=== PATIENT | male | born 1955 | race Two or more races ===

== ENCOUNTER 2018-02-11 12:55 | Emergency (ER) | payer MEDICARE ==
[~2018-02-11] VITALS: Ht 182.9 cm; Wt 104.3 kg
[2018-02-11 13:11] VITALS: BP 169/103
[2018-02-11] MEDS ORDERED: AMLO10TA2 PO (13:13)
[2018-02-11] MEDS ORDERED: FURO-80 PO (13:13)
[2018-02-11] MEDS ORDERED: LISI-410 PO (13:13)
[2018-02-11] MEDS ORDERED: CARV25TA PO (13:13)
--- NOTE | 2018-02-11 13:13 | NUR ---
ARRIVAL PATIENT ARRIVED TO ED5 AMBULATORY, C/O OF HIGH BLOOD PRESSURE AND HEADACHE TODAY, HAS HAD A FEW EPISODES OF VOMITING BUT WAS ABLE TO KEEP BLOOD PRESSURE MEDICATIONS DOWN. BROUGHT TO PATIENT TO THE ED FOR FURTHER EVAL.
[2018-02-11] MEDS ORDERED: STADOL IM STA (13:21)
[2018-02-11] MEDS ORDERED: PHENERGAN IM STA (13:21)
--- NOTE | 2018-02-11 13:30 | ER.PDOC ---
General Chief Complaint: General Complaint Stated Complaint: HIGH BP,HEADACHE Time seen by MD: 13:28 Source: patient Exam Limitations: no limitations History of Present Illness Initial Comments Headache and high blood pressure for past few days. Severity/Quality: moderate Prior Headaches/Recent Trauma: chronic headaches, occasional headaches Associated Symptoms: nausea/vomiting Prior symptoms/Treatment: Similar symptoms previous Allergies: Coded Allergies: No Known Allergies (Unverified , 02/11/18) Home Meds Reported Medications Amlodipine Besylate (AMLODIPINE BESYLATE) 10 Mg Tablet, 1 TAB PO DAILY, #90 TAB 3 Refills 02/11/18 Lisinopril (LISINOPRIL) 20 Mg Tablet, 1 TAB PO BID, #90 TAB 3 Refills 02/11/18 Furosemide (LASIX) 40 Mg Tablet, 1 TAB PO DAILY, #90 TAB 3 Refills 02/11/18 Carvedilol 25MG (COREG 25MG) 25 Mg Tablet, 1 TAB PO BID, #180 TAB 3 Refills 02/11/18 Past Medical History Medical History: congestive heart failure, hypertension Surgical History: cholecystectomy, colon Social History Smoking: non-smoker Alcohol Use: none Drug Use: marijuana Review of Systems Constitutional: no symptoms reported Respiratory: no symptoms reported Cardiovascular: no symptoms reported Gastrointestinal: no symptoms reported Genitourinary: no symptoms reported Musculoskeletal: no symptoms reported All Other Systems: Reviewed and Negative Physical Exam General Appearance: No Apparent Distress, WD/WN Head/Eyes: eyes nml inspection, no facial swelling, no nystagmus, PERRL ENT: nml ENT inspection, pharynx nml Neck: nml inspection, Supple Cardiovascular: Normal Peripheral Pulses, Regular Rate, Rhythm, No Edema, No Gallop, No JVD, No Murmur Respiratory: chest non-tender, lungs clear, normal breath sounds, no respiratory distress, no accessory muscle use Gastrointestinal: Normal Bowel Sounds, No Organomegaly, No Pulsatile Mass, Non Tender, Soft Back: Normal Inspection, No CVA Tenderness, No Vertebral Tenderness Extremities: Normal Range of Motion, Non-Tender, Normal Inspection, No Pedal Edema, No Calf Tenderness, Normal Capillary Refill Psychiatric: Alert, Oriented x 3 Cranial Nerves: Normal Hearing, Normal Speech, PERRL Skin: Warm/Dry, Normal Color Lymphatic: No Adenopathy Results/Orders Results/Orders Laboratory Tests Test 02/11/18 13:40 Sodium Level 140 mmol/L (132-145) Potassium Level 3.4 mmol/L (3.6-5.2) Chloride Level 102.0 mmol/L (96-109) Carbon Dioxide Level 27.6 mmol/L (20.0-32) Glucose Level 141 mg/dL (70-110) Blood Urea Nitrogen 14 mg/dL (7-18) Creatinine 0.81 mg/dL (0.59-1.40) Calcium Level 9.3 mg/dL (8.4-10.5) Anion Gap 13.8 Estimated GFR () 117.2 (>/=60) BUN/Creatinine Ratio 17.0 Administered Medications Medications (Trade) Dose Ordered Sig/Cristi Route PRN Reason Start Time Stop Time Status Last Admin Dose Admin Butorphanol Tartrate (Stadol) 2 mg STAT STAT IM 02/11/18 13:21 02/11/18 13:23 DC 02/11/18 13:52 Promethazine HCl (Phenergan) 25 mg STAT STAT IM 02/11/18 13:21 02/11/18 13:23 DC 02/11/18 13:52 Progress Progress Nothing acute intracranially and patient is feeling better. Departure Time of Disposition: 14:08 Disposition: 01 HOME, SELF-CARE Impression: Primary Impression: Migraine Qualified Codes: G43.911 - Migraine, unspecified, intractable, with status migrainosus Additional Impression: Uncontrolled hypertension Condition: Improved Referrals: PCP,UNKNOWN (PCP) PRIMARY CARE PROVIDER Additional Instructions: Continue home medications F/U with your PCP in 2-3 days Duration or Time Spent with Pa: 60 mins GURINDER LINTON MD Feb 11, 2018 13:30
[2018-02-11] MEDS ORDERED: STADOL ONE (13:46)
[2018-02-11] MEDS ORDERED: PHENERGAN ONE (13:46)
[2018-02-11 13:56] LABS: CARBON DIOXIDE 27.6 mmol/L (20.0-32)
[2018-02-11 13:57] LABS: CALCIUM 9.3 mg/dL (8.4-10.5)
--- NOTE | 2018-02-11 14:03 | DIREP ---
PROCEDURE:CT HEAD OR BRAIN W/O CONTRAST COMPARISON:None. INDICATIONS:Headache TECHNIQUE:CT images were created without intravenous contrast. FINDINGS: VENTRICLES:The ventricles are normal in size and configuration. CEREBRUM:Normal cerebral morphology with appropriate jang white matter differentiation. CEREBELLUM:Negative. BRAINSTEM:Negative. BASAL CISTERNS:Negative. HEMORRHAGE:No MASS LESION:No ACUTE INFARCT:No SKULL:Normal. SINUSES:1.4 cm mucous retention cyst or polyp is seen in the left maxillary sinus. OTHER:None CONCLUSION:Essentially normal study. Incidentally noted is a 1.4 cm mucous retention cyst or polyp in the left maxillary sinus. Dictated by: Girish Sol M.D. on 02/11/2018 at 02:00 PM
[2018-02-11 14:08] VITALS: BP 152/90
[2018-02-11 14:09] VITALS: BP 152/90
== END 2018-02-11 14:25 | disposition home or self-care (01) ==
LOC: ER 12:55
DX: G43.909 Migraine, unspecified, not intractable, without status migrainosus (principal); I11.0 Hypertensive heart disease with heart failure; I50.9 Heart failure, unspecified; F12.10 Cannabis abuse, uncomplicated; Z90.49 Acquired absence of other specified parts of digestive tract; Z79.899 Other long term (current) drug therapy
CPT/HCPCS: 36415; 70450; 80048; 96372 ×2; 99285; J2550; J0585

== ENCOUNTER 2020-12-13 13:11 | Emergency (ER) | payer MEDICARE ==
[~2020-12-13] VITALS: Ht 182.9 cm; Wt 104.3 kg
[~2020-12-13 13:11] MED LIST: AMLO-170 PO; CARV25TA PO; FURO-80 PO; LISI20TA21 PO
[2020-12-13 14:02] VITALS: BP 182/99
[2020-12-13] MEDS ORDERED: STADOL IM STA (14:05)
[2020-12-13] MEDS ORDERED: ZOFRAN ODT SL STA (14:05)
--- NOTE | 2020-12-13 14:05 | NUR ---
ARRIVAL PATIENT ARRIVED TO ED6 AMBULATORY, C/O HEADACHE SINCE APPROX 0300 THIS MORNING, PATIENT DID TAKE TYLENOL WITH NO RELIEF, DOES HAVE HISTORY OF MIGRAINES, BROUGHT TO THE ED FOR EVAL, DOCTOR WOLF TO THE ROOM TO SEE PATIENT.
[2020-12-13] MEDS ORDERED: ZOFRAN ODT ONE (14:07)
[2020-12-13] MEDS ORDERED: STADOL ONE (14:07)
[2020-12-13] MEDS ORDERED: PHENERGAN IM STA (14:21)
[2020-12-13] MEDS ORDERED: PHENERGAN ONE (14:23)
--- NOTE | 2020-12-23 10:31 | ER.PDOC ---
General Chief Complaint: Headache Stated Complaint: MIGRAINE Time seen by MD: 10:22 Source: patient Exam Limitations: no limitations History of Present Illness Timing/Duration: 4-6 hours Severity/Quality: moderate Prior Headaches/Recent Trauma: chronic headaches, occasional headaches Associated Symptoms: nausea/vomiting, sensitivity to light Modifying Factors: improves with medication, improves with rest Prior symptoms/Treatment: Similar symptoms previous Allergies: Coded Allergies: No Known Allergies (Unverified , 02/11/18) Home Meds Reported Medications Amlodipine Besylate (AMLODIPINE BESYLATE) 10 Mg Tablet, 1 TAB PO DAILY, #90 TAB 3 Refills 02/11/18 Lisinopril (LISINOPRIL) 20 Mg Tablet, 1 TAB PO BID, #90 TAB 3 Refills 02/11/18 Furosemide (LASIX) 40 Mg Tablet, 1 TAB PO DAILY, #90 TAB 3 Refills 02/11/18 Carvedilol 25MG (COREG 25MG) 25 Mg Tablet, 1 TAB PO BID, #180 TAB 3 Refills 02/11/18 Past Medical History Medical History: congestive heart failure, hypertension Surgical History: cholecystectomy, colon Social History Alcohol Use: none Drug Use: none Reviewed Nursing Reviewed: Vital Signs, Abn. Noted Review of Systems All Other Systems: Reviewed and Negative Physical Exam General Appearance: No Apparent Distress, WD/WN Head/Eyes: eyes nml inspection, no facial swelling, no nystagmus, PERRL ENT: nml ENT inspection, pharynx nml Neck: nml inspection, Supple Cardiovascular: Normal Peripheral Pulses, Regular Rate, Rhythm, No Edema, No Gallop, No JVD, No Murmur Respiratory: chest non-tender, lungs clear, normal breath sounds, no respiratory distress, no accessory muscle use Gastrointestinal: Normal Bowel Sounds, No Organomegaly, No Pulsatile Mass, Non Tender, Soft Back: Normal Inspection, No CVA Tenderness, No Vertebral Tenderness Extremities: Normal Range of Motion, Non-Tender, Normal Inspection, No Pedal Edema, No Calf Tenderness, Normal Capillary Refill Psychiatric: Alert, Oriented x 3 Cranial Nerves: Normal Hearing, Normal Speech, PERRL Coordination/Gait: Normal Finger to Nose, Normal Gait Motor/Sensory: No Motor Deficit, No Sensory Deficit, No Pronator Drift, Negative Babinski's Sign Skin: Warm/Dry, Normal Color Lymphatic: No Adenopathy Results/Orders Results/Orders Orders - JIMBO WOLF MD Butorphanol Tartrate (Stadol) (12/13/20 14:05) Ondansetron (Zofran Odt) (12/13/20 14:05) Ondansetron (Zofran Odt) (12/13/20 14:07) Butorphanol Tartrate (Stadol) (12/13/20 14:07) Promethazine Hcl (Phenergan) (12/13/20 14:21) Promethazine Hcl (Phenergan) (12/13/20 14:23) Vital Signs Date Time Temp Pulse Resp B/P (MAP) Pulse Ox O2 Delivery O2 Flow Rate FiO2 12/13/20 14:02 97.9 83 18 12/13/20 14:02 97.9 83 18 97 12/13/20 14:02 97.9 83 18 182/99 (126) 97 Room Air ER DEPART Departure Time of Disposition: 12:00 Disposition: 01 HOME / SELF CARE / HOMELESS Impression: Primary Impression: Migraine headache Condition: Improved Patient Instructions: Migraine Headache Referrals: PCP,UNKNOWN (PCP) PRIMARY CARE PROVIDER Additional Instructions: YOU WERE SEEN IN THE ER FOR COMPLAINTS OF A MIGRAINE. AN EXAMINATION WAS PERFORMED BY DR. WOLF. MEDICATION: STADOL 2MG IM, ZOFRAN 4MG PO ODT. FOLLOW UP WITH PCP IN 2-3 DAYS. Duration or Time Spent with Pa: 13m JIMBO WOLF MD Dec 23, 2020 10:31
== END 2020-12-13 14:34 | disposition home or self-care (01) ==
LOC: ER 13:11
DX: G43.909 Migraine, unspecified, not intractable, without status migrainosus (principal); I11.0 Hypertensive heart disease with heart failure; I50.9 Heart failure, unspecified; Z79.899 Other long term (current) drug therapy; Z90.49 Acquired absence of other specified parts of digestive tract
CPT/HCPCS: 96372; 99284; J0595; J2550

== ENCOUNTER 2020-12-14 02:38 | Emergency (ER) | payer MEDICARE ==
[~2020-12-14] VITALS: Ht 182.9 cm; Wt 105.7 kg
[2020-12-14] MEDS ORDERED: PHENERGAN IM STA (02:43)
[2020-12-14] MEDS ORDERED: DEMEROL IM STA (02:43)
[2020-12-14] MEDS ORDERED: DECADRON IH SCH (03:00)
[2020-12-14 03:05] VITALS: BP 176/117
--- NOTE | 2020-12-14 03:12 | NUR ---
Triage: Patient awake, alert, ambulatory from triage to room 6. He states he was seen earlier today for same migraine complaint. Prescriptions were taken to [facility] to be filled, however he hasn't picked them up yet. He states being light sensitive, states pain in head "just won't let up." He does have previous history of migraines, normally controlled with diet. Dr. Cifuentes at bedside, to monitor, lights turned off.
[2020-12-14] MEDS ORDERED: PHENERGAN ONE (03:19)
[2020-12-14] MEDS ORDERED: DEMEROL ONE (03:20)
[2020-12-14] MEDS ORDERED: DECADRON ONE ×2 (03:33→03:51)
[2020-12-14] MEDS ORDERED: DUO 0.5-3(2.5) MG/3 ML IH ONE (03:33)
--- NOTE | 2020-12-14 03:54 | DIREP ---
PROCEDURE:CT HEAD OR BRAIN W/O CONTRAST COMPARISON:[facility], CT, CT HEAD BRAIN W/O CONTRAST, 02/11/2018, 01:27 PM. INDICATIONS:Migraine severe TECHNIQUE:CT images were created without intravenous contrast. FINDINGS: VENTRICLES:The ventricles are normal in size and configuration. CEREBRUM:Normal cerebral morphology with appropriate jang white matter differentiation. CEREBELLUM:Negative. BRAINSTEM:Negative. BASAL CISTERNS:Negative. HEMORRHAGE:No MASS LESION:No ACUTE INFARCT:No SKULL:Normal. SINUSES:Normal. OTHER:None CONCLUSION:No acute intracranial findings. Dictated by: Roge Rodriguez M.D. on 12/14/2020 at 03:51 AM
[2020-12-14] MEDS ORDERED: DEXAMETHASONE 10 MG/ML VIAL IM SCH ×2 (04:00→09:00)
--- NOTE | 2020-12-14 04:16 | NUR ---
Update: Patient reports feeling better with medication administration. Lights turned off, ice pack provided for back of patient head/neck. Awaiting CT results and Dr. Cifuentes final dispostion decision.
[2020-12-14] MEDS ORDERED: IMITREX SQ STA (04:57)
[2020-12-14] MEDS ORDERED: BENADRYL IM STA (04:57)
[2020-12-14] MEDS ORDERED: TORADOL IM PRN (05:00)
[2020-12-14] MEDS ORDERED: IMITREX SQ ONE (05:02)
[2020-12-14] MEDS ORDERED: BENADRYL ONE (05:03)
[2020-12-14] MEDS ORDERED: TORADOL ONE (05:03)
--- NOTE | 2020-12-14 05:08 | ER.PDOC ---
General Chief Complaint: Headache Stated Complaint: MIGRAINE Time seen by MD: 02:30 Source: patient, family Exam Limitations: no limitations History of Present Illness Initial Comments Patient return to the ER after been seen here 12 hrs ago for the same, severe Migraine. Patient voices that he was DC home without any relief< patient was not able to filled up the medications prescribed to him at that time. PAtient denies ferver or chills. No Chest pain, SOB or cough. No Diarrhea constipatrion or abdominal pain, No urinary symptoms. No neck pain or stiffness no back pain. Timing/Duration: 24 hours Severity/Quality: moderate, severe, constant, throbbing Prior Headaches/Recent Trauma: no recent headache/trauma, occasional headaches Associated Symptoms: nausea/vomiting Prior symptoms/Treatment: Similar symptoms previous Allergies: Coded Allergies: No Known Allergies (Unverified , 02/11/18) Home Meds Reported Medications Amlodipine Besylate (AMLODIPINE BESYLATE) 10 Mg Tablet, 1 TAB PO DAILY, #90 TAB 3 Refills 02/11/18 Lisinopril (LISINOPRIL) 20 Mg Tablet, 1 TAB PO BID, #90 TAB 3 Refills 02/11/18 Furosemide (LASIX) 40 Mg Tablet, 1 TAB PO DAILY, #90 TAB 3 Refills 02/11/18 Carvedilol 25MG (COREG 25MG) 25 Mg Tablet, 1 TAB PO BID, #180 TAB 3 Refills 02/11/18 Past Medical History Medical History: congestive heart failure Surgical History: cholecystectomy, colon Social History Drug Use: none Review of Systems Constitutional: no symptoms reported Eyes: no symptoms reported Ears, Nose, Mouth, Throat: no symptoms reported Respiratory: no symptoms reported Cardiovascular: no symptoms reported Gastrointestinal: nausea, vomiting Genitourinary: no symptoms reported Musculoskeletal: no symptoms reported Psychiatric/Neurological: headache Physical Exam General Appearance: No Apparent Distress, WD/WN Head/Eyes: eyes nml inspection, no facial swelling, no nystagmus, PERRL ENT: nml ENT inspection, pharynx nml Neck: nml inspection, Supple Cardiovascular: Normal Peripheral Pulses, Regular Rate, Rhythm, No Edema Respiratory: chest non-tender, lungs clear, normal breath sounds Gastrointestinal: Normal Bowel Sounds, Non Tender Back: Normal Inspection, No Vertebral Tenderness Extremities: Normal Range of Motion, Non-Tender, Normal Inspection, No Pedal Edema, No Calf Tenderness Psychiatric: Alert, Oriented x 3 Cranial Nerves: Normal Hearing, Normal Speech, PERRL Coordination/Gait: Normal Finger to Nose, Normal Gait Motor/Sensory: No Motor Deficit, No Sensory Deficit, No Pronator Drift Skin: Warm/Dry, Normal Color Lymphatic: No Adenopathy Results/Orders Results/Orders Orders - FLAQUITA PERERA MD Ct Head Wo Contrast (12/14/20 02:43) Dexamethasone Sodium Phosphate (Decadron (12/14/20 03:00) Promethazine Hcl (Phenergan) (12/14/20 02:43) Meperidine Hcl/Pf (Demerol) (12/14/20 02:43) Promethazine Hcl (Phenergan) (12/14/20 03:19) Meperidine Hcl/Pf (Demerol) (12/14/20 03:20) Ipratropium/Albuterol Sulfate (Duo 0.5-3 (12/14/20 03:33) Dexamethasone Sodium Phosphate (Decadron (12/14/20 03:33) Dexamethasone Sodium Phosp/Pf (Dexametha (12/14/20 09:00) Dexamethasone Sodium Phosp/Pf (Dexametha (12/14/20 04:00) Dexamethasone Sodium Phosphate (Decadron (12/14/20 03:51) Ketorolac Tromethamine (Toradol) (12/14/20 05:00) Diphenhydramine Hcl (Benadryl) (12/14/20 04:57) Sumatriptan Succinate (Imitrex) (12/14/20 04:57) Vital Signs Date Time Temp Pulse Resp B/P (MAP) Pulse Ox O2 Delivery O2 Flow Rate FiO2 12/14/20 03:05 99.5 101 18 176/117 (136) 98 Room Air 12/14/20 03:05 99.5 101 20 98 Administered Medications Medications (Trade) Dose Ordered Sig/Cristi Route PRN Reason Start Time Stop Time Status Last Admin Dose Admin Meperidine HCl (Demerol) 50 mg STAT STAT IM 12/14/20 02:43 12/14/20 03:05 DC 12/14/20 03:27 50 MG Promethazine HCl (Phenergan) 25 mg STAT STAT IM 12/14/20 02:43 12/14/20 03:05 DC 12/14/20 03:27 25 MG Progress Progress PAtient response to in house medication waa excellent with complete resolution of the symptoms ER DEPART Departure Time of Disposition: 05:09 Disposition: 01 HOME / SELF CARE / HOMELESS Impression: Primary Impression: Migraine headache Condition: Improved Referrals: PCP,UNKNOWN (PCP) PRIMARY CARE PROVIDER Additional Instructions: Please order picker/assembler the prescription provided to you this am Duration or Time Spent with Pa: 15 Return to Work/School Can a patient return to work?: Yes Can a patient return to school: Yes FLAQUITA PERERA MD Dec 14, 2020 05:07
== END 2020-12-14 05:30 | disposition home or self-care (01) ==
LOC: ER 02:38
DX: G43.909 Migraine, unspecified, not intractable, without status migrainosus (principal); I50.9 Heart failure, unspecified; Z79.899 Other long term (current) drug therapy; Z90.49 Acquired absence of other specified parts of digestive tract
CPT/HCPCS: 70450; 96372; 99284; J1100 ×2; J1200; J1885; J2175; J2550; J3030